=== PATIENT | male | born 1950 | race Caucasian/White ===

== ENCOUNTER 2022-08-06 07:54 | Outpatient (REF) | payer MEDICARE, MEDICAID, SELFPAY ==
--- NOTE | ~2022-08-06 | XR_ITS ---
EXAMINATION: XR RIGHT KNEE XR BILATERAL KNEES CLINICAL HISTORY: Pain in right knee. COMPARISON: MRI right knee 11/26/2021, right knee 03/11/2021. TECHNIQUE: AP standing view of bilateral knees. Lateral and sunrise views of the right knee. FINDINGS: Bilateral knees: Mild medial joint space narrowing left knee. Right knee: Mild medial joint space narrowing. Tiny posterior patellar osteophytes. Trace joint effusion. XR/XR knee standing BI IMPRESSION: Mild degenerative changes bilateral knees.
--- NOTE | ~2022-08-06 | XR_ITS ---
EXAMINATION: XR RIGHT KNEE XR BILATERAL KNEES CLINICAL HISTORY: Pain in right knee. COMPARISON: MRI right knee 11/26/2021, right knee 03/11/2021. TECHNIQUE: AP standing view of bilateral knees. Lateral and sunrise views of the right knee. FINDINGS: Bilateral knees: Mild medial joint space narrowing left knee. Right knee: Mild medial joint space narrowing. Tiny posterior patellar osteophytes. Trace joint effusion. XR/XR knee RT 2V IMPRESSION: Mild degenerative changes bilateral knees.
== END 2022-08-06 07:55 | disposition home or self-care (01) ==
LOC: HO.HOSX 07:54
PROVIDERS: Visit Provider Physician Assistant
DX: M21.161 Varus deformity, not elsewhere classified, right knee (principal); M25.562 Pain in left knee
CPT/HCPCS: 73560; 73565; 99202

== ENCOUNTER 2022-08-30 13:46 | Outpatient (AMB) | payer MEDICARE, MEDICAID, SELFPAY ==
[2022-08-30 13:48] VITALS: BP 139/82; PULSE 83; RESP 14; O2SAT 95; BMI 24.9
--- NOTE | 2022-08-30 13:48 | A.OFFVIS_ITS ---
Intake Vital Signs 08/30/22 13:48 Height 5 ft 7 in Weight 159 lb BMI 24.9 BP 139/82 Blood Pressure Location Lt brachial Position Sitting Respiration 14 Pulse 83 Pulse Source Pulse Oximeter Pulse Oximetry (%) 95 Oxygen Delivery Method Room Air Intake Visit Reasons: PATHOLOGICAL FRACTURE Allergies amoxicillin [AMOXICILLIN] Allergy (Intermediate, Verified 08/30/22 13:49) HIVES Medication List - Last Reconciled 08/30/22 by Lsia Orellana LPN atenolol 25 mg PO DAILY bupropion HCl 150 mg PO BID cholecalciferol (vitamin D3) (Vitamin D3) 50 mcg PO DAILY [Medial Cook Ship Knee brace n/a] sodium fluoride-pot nitrate 1.1-5 % PO trazodone 50 mg PO BEDTIME HPI PATHOLOGICAL FRACTURE HPI Details 71-year-old male presenting today for an evaluation of Rightknee pain. He states he has constant, aching pain and, depending on activity, experiences dull, throbbing, and sharp pain throughout his right knee, which is worse with ambulating, stair use, and standing. Pain is rated as 8/10. The patient reports right knee pain that started after tripping and twisting his knee without any fall, which has caused pain for about 2 years. He was seen by a [facility], underwent an MRI scan, and received gel and cortisone injections with minimal benefits. He finds relief with a knee brace. He is in process of getting a new knee brace through Dr. Alvarado's office. He is currently on Trazodone for sleep. His MRI had shown a root avulsion of the medial meniscus as well as an insufficiency fracture of the tibia and a subchondral lesion without bone marrow edema. [facility] Medical History (Updated 08/31/22 @ 10:21 by Anthony Reyes MD) HTN (hypertension) Insufficiency fracture of tibia Posterior right knee pain Tear of meniscus of right knee as current injury Varus deformity, not elsewhere classified, right knee Social History (Updated 08/06/22 @ 10:57 by Liezth Smith [facility]) Patient Tobacco Use Status: Former Tobacco user Current occupational status: unemployed Review of Systems Const All systems reviewed & are unremarkable except as noted in HPI and below Physical Exam Vital Signs: Last Vital Signs Pulse 83 08/30/22 13:48 Resp 14 08/30/22 13:48 BP 139/82 07/17/23 13:48 Pulse Ox 95 08/30/22 13:48 Oxygen Delivery Method Room Air 08/30/22 13:48 BMI result Body Mass Index 24.9 General: Appears afebrile. Alert and oriented. Mood and affect appropriate. Follows and participates in conversation appropriately. Respiratory effort is unlabored. Able to transition from sit to stand unassisted. Ambulates with bilaterally normal heel strike and toe off. Moderate tenderness to palpation in the right medial infrapatellar region. No significant swelling. Knee brace in place. Results Reviewed Results Reviewed: 08/06/22: XR RIGHT KNEE / XR BILATERAL KNEES FINDINGS: Bilateral knees: Mild medial joint space narrowing left knee. Right knee: Mild medial joint space narrowing. Tiny posterior patellar osteophytes. Trace joint effusion. IMPRESSION: Mild degenerative changes bilateral knees. 11/26/21: MR LOWER EXTREMITIES W/O CONTRAST RIGHT. Findings: Medial meniscus posterior root avulsion. Body of the medial meniscus is subluxed into the medial gutter. Mild thinning and irregularity within weightbearing surface cartilage of the medial compartment. Small, old subchondral insufficiency fracture in the medial femoral condyle. No associated marrow edema. Lateral meniscus is intact. The ACL and PCL are intact The MCL is intact The LCL complex including the biceps femoris, popliteus and fibular collateral ligaments are intact The medial and lateral patellar retinacula are intact. The extensor mechanism is intact. Impression: Medial meniscus posterior root avulsion. Mild medial compartment cartilage chondromalacia. Old subchondral insufficiency fracture within the medial femoral condyle. No associated marrow edema. Assessment & Plan Assessment & Plan (1) Tear of meniscus of right knee as current injury: Code(s): S83.206A - Unspecified tear of unspecified meniscus, current injury, right knee, initial encounter (2) Chronic pain of right knee: Code(s): M25.561 - Pain in right knee; G89.29 - Other chronic pain Plan 1. Discussed temporary nerve stimulator vs permanent nerve stimulator vs PRP therapy as potential treatment options. Patient is unable to afford out-of- pocket PRP injections. 2. A temporary nerve stimulator device brochure was provided to the patient. We will proceed with a trial of PNS if conservative measures over the summer are unhelpful. 3. For the time being, I encouraged him to continue with home exercises and swimming. Continue knee bracing as tolerated. 4. Started the patient on trial of gabapentin 100 mg once daily QHS. Take 1 capsule at night for 1 week, if no benefits increase it to 2 pills at night for a week, if no benefits increase it to 3 pills at night. Advised patient to watch for cognitive side effects o adjust dose accordingly; he will reach out to our office as needed. Scribed for Dr. Reyes by Holden Reaves, claim review medical director, on 08/30/2022. I, Dr. Reyes, have personally reviewed and agree with the information entered by the scribe. Medications: New gabapentin 300 mg (3 x 100 mg) PO TID 90 caps 0RF Coding Level of Care Code New Pt Level 4 (86838) Diagnoses Tear of meniscus of right knee as current injury S83.206A Chronic pain of right knee M25.561; G89.29
== END 2022-08-30 14:39 | disposition home or self-care (01) ==
PROVIDERS: PCP Registered Nurse; Visit Provider Internal Medicine
DX: S83.206A Unspecified tear of unspecified meniscus, current injury, right knee, initial encounter (principal); M25.561 Pain in right knee; G89.29 Other chronic pain
CPT/HCPCS: 99204

== ENCOUNTER → 2022-08-30 13:46 | Outpatient (BNVA) | payer MEDICARE, MEDICAID, SELFPAY | PROVIDERS: PCP Registered Nurse; Visit Provider Internal Medicine | DX: G89.29 Other chronic pain (principal); M25.561 Pain in right knee; S83.206A Unspecified tear of unspecified meniscus, current injury, right knee, initial encounter | CPT/HCPCS: 99202 ==

== ENCOUNTER 2023-02-28 08:33 | Outpatient (AMB) | payer MEDICARE, MEDICAID, SELFPAY ==
--- NOTE | 2023-02-28 08:41 | A.OFFVIS_ITS ---
Intake Vital Signs 02/28/23 08:49 Height 5 ft 7 in Weight 159 lb BMI 24.9 Intake Visit Reasons: ov- Insufficiency fracture of right tibia Intake Note: Baljit 72 yr old male presents today for his follow up visit for his right Varus deformity. States he has received the knee brace however has not used it due to not knowing how to properly put on brace. Reports he also saw pain management and was given a medication that causes coherent memory loss, also offered to have a stent placement in thigh but patient is unsure if this is something he would do. Allergies amoxicillin [AMOXICILLIN] Allergy (Intermediate, Verified 02/28/23 08:48) HIVES HPI ov- Insufficiency fracture of right tibia HPI Details 72-year-old male who returns to the [facility] today for a follow-up of right pain . He states he has received the medial licensed physical therapist knee brace however has not been able to use it as he does not know how to wear and feels bulky to use. He was seen at pain management with recoommendations for a stimulator and gabapentin which he decided against. He states the gabapentin has a side effect of coherent memory loss and did not want to take a chance with this medication. He currently states he has slightly more pain in his knee which is aggravated with ambulation and stair use. He also c/o snapping of his knee with using stairs to reach his apartment at [address]th floor while holding groceries. He denies any sharp pinching pain in his knee. He finds relief with ibuprofen and Tylenol. He had a steroid injection about an year ago which provided him relief. He does not have a history of diabetes. [facility] Medical History (Updated 02/28/23 @ 12:16 by Alen Valdez PA-C) HTN (hypertension) Posterior right knee pain Tear of meniscus of right knee as current injury Insufficiency fracture of tibia Varus deformity, not elsewhere classified, right knee Social History Patient Tobacco Use Status: Former Tobacco user Current occupational status: unemployed Review of Systems Const All systems reviewed & are unremarkable except as noted in HPI and below Physical Exam Vital Signs: BMI result Body Mass Index 24.9 Const General: cooperative, healthy appearing, comfortable, no acute distress, well developed and alert Orientation/consciousness: patient oriented x3 HEENT Head: Yes normal to inspection, Yes normocephalic and Yes atraumatic Eyes General: appearance normal, both eyes and all related structures Resp Effort & Inspection: normal respiratory effort and able to speak in complete sentences Cardio Rate: regular rate Peripheral pulses: Peripheral pulses 2+ throughout GI Palpation (GI): Soft to palpation Skin Lesions: no lesions Rashes: no rashes Neuro General: patient oriented x3 Extrem Other: Right knee skin intact, no erythema or joint effusion. Tenderness over the proximal end of tibia and lateral joint line. Full ROM with crepitus. Negative Jabari?s. No ligamentous laxity. NVI. Office Procedures Joint Injection/Drain Joint Injection/Drain Primary Site: right knee Prep: site was prepped using aseptic technique, ethochloride spray was applied and injection warnings given Injected: 80 mg of, DepoMedrol, with 8 mL of, 1% plain lidocaine and in the joint Approach Used: anterolateral Procedure: The patient tolerated the procedure well and there was some relief with the local anesthesia Coding 67421 - Glenohumeral/Tronchanteric Bursa/Intraarticular Procedure code (CPT) selection complete Assessment & Plan Assessment & Plan (1) Varus deformity, not elsewhere classified, right knee: Code(s): M21.161 - Varus deformity, not elsewhere classified, right knee (2) Insufficiency fracture of tibia: Code(s): M84.469A - Pathological fracture, unspecified tibia and fibula, initial encounter for fracture Qualifiers: Encounter type: subsequent encounter Fracture healing: with routine healing Qualified Code(s): M84.469D - Pathological fracture, unspecified tibia and fibula, subsequent encounter for fracture with routine healing (3) Tear of meniscus of right knee as current injury: Code(s): S83.206A - Unspecified tear of unspecified meniscus, current injury, right knee, initial encounter Qualifiers: Encounter type: subsequent encounter Meniscus of knee: medial Meniscus tear of knee type: other type Qualified Code(s): S83.241D - Other tear of medial meniscus, current injury, right knee, subsequent encounter Plan We discussed options today which include steroid injection. They did consent to move forward with the right knee injection, which was tolerated well. I recommended rest, ice and elevation and OTC anti-inflammatories PRN for discomfort. He was also placed in a hinge knee brace which he will wear for stability with activities such as stair climbing. If symptoms persist or worsens over the next 6-8 weeks, patient will contact the office, otherwise follow-up as needed. I did explain that if he fails conservative treatment, he may be a surgical candidate and should be seen with Dr. Alvarado to determine further treatment options. Patient Instructions: Scribed for Alen Valdez PA-C, by Guru Wing medical education specialist, on 02/28/2023 at 8:45 AM KAILA. Dusty, Alen Valdez PA-C, have personally reviewed and agree with the information entered by the scribe. Coding Level of Care Code Est Pt Level 3 (42883) Diagnoses Varus deformity, not elsewhere classified, right knee M21.161 Insufficiency fracture of tibia with routine healing, subsequent encounter M84 .469D Encounter type: subsequent encounter Fracture healing: with routine healing Other tear of medial meniscus of right knee as current injury, subsequent encounter S83.241D Encounter type: subsequent encounter Meniscus of knee: medial Meniscus tear of knee type: other type CPT Codes Coding - Joint 7: 20851 - Glenohumeral/Tronchanteric Bursa/Intraarticular ([id number])
[2023-02-28 08:49] VITALS: BMI 24.9
== END 2023-02-28 09:47 | disposition home or self-care (01) ==
PROVIDERS: PCP Registered Nurse; Visit Provider Physician Assistant
DX: M21.161 Varus deformity, not elsewhere classified, right knee (principal); M84.469D Pathological fracture, unspecified tibia and fibula, subsequent encounter for fracture with routine healing; S83.241D Other tear of medial meniscus, current injury, right knee, subsequent encounter
CPT/HCPCS: 20610; 99213

== ENCOUNTER → 2023-02-28 08:33 | Outpatient (BNVA) | payer MEDICARE, MEDICAID, SELFPAY | PROVIDERS: PCP Registered Nurse; Visit Provider Physician Assistant | DX: M21.161 Varus deformity, not elsewhere classified, right knee (principal); M84.469D Pathological fracture, unspecified tibia and fibula, subsequent encounter for fracture with routine healing; S83.241D Other tear of medial meniscus, current injury, right knee, subsequent encounter | CPT/HCPCS: 20610; 99212; J1040 ==

== ENCOUNTER 2023-06-13 08:31 | Outpatient (REF) | payer MEDICARE, MEDICAID, SELFPAY ==
[2023-06-13 11:40] LABS: MANUAL DIFF FLAG NO
[2023-06-13 11:46] LABS: Basophils Absolute Auto 0.1 X10*3/uL (0.0-0.2); Basophils Percent Auto 0.7 % (0-2); Eosinophils Absolute Auto 0.2 X10*3/uL (0.0-0.4); Eosinophils Percent Auto 2.6 % (0-4); Hematocrit 46.9 % (42.0-52.0); Hemoglobin 15.5 g/dl (14.0-18.0); Imm Gran Abs Auto 0.04 X10*3/uL (0.00-0.03); Imm Gran Pct Auto 0.6 % (0.0-0.4); Lymphocytes Absolute Auto 1.7 X10*3/uL (1.2-4.9); Lymphocytes Percent Auto 23.8 % (20-40); Mean Corpuscular Hemoglobin 30.6 pg (27.0-33.0); Mean Corpuscular Volume 92.5 fL (80.0-98.0); Monocytes Absolute Auto 0.7 X10*3/uL (0.1-1.2); Monocytes Percent Auto 10.5 % (2-11); Neutrophils Absolute Auto 4.3 x10*3/uL (2.0-8.3); Neutrophils Percent Auto 61.8 % (45-73); Platelet Count 266 X10*3/uL (160-400); Red Blood Count 5.07 X10*6/uL (4.60-5.80); Red Cell Distribution Width 14.4 % (11.0-16.0)
[2023-06-13 13:09] LABS: Alanine Aminotransferase 22 U/L (0-40); Albumin Level 4.4 g/dL (3.5-5.0); Alkaline Phosphatase 69 U/L (39-117); Anion Gap 12 (12-20); Aspartate Amino Transferase 18 U/L (5-37); Bilirubin Total 0.3 mg/dL (0.0-1.0); Blood Urea Nitrogen 15 mg/dL (9-16); Calcium 9.9 mg/dL (8.4-10.2); Carbon Dioxide 28 mmol/L (22-29); Chloride 104 mmol/L (96-108); Cholesterol 227 mg/dL (<200); Estimated Glomerular Filt Rate > 60; Glucose Random 108 mg/dL (60-115); HDL Cholesterol 51 mg/dL (>40); LDL Cholesterol Calculated 153 mg/dL (<100); Potassium 4.6 mmol/L (3.3-5.1); Sodium 139 mmol/L (135-145); Total Protein 7.3 g/dL (6.5-8.0); Triglycerides 117 mg/dL (<150)
== END 2023-06-13 08:32 | disposition home or self-care (01) ==
LOC: HO.HHCL 08:31
PROVIDERS: Visit Provider Nurse Practitioner Family
DX: I10 Essential (primary) hypertension (principal)
CPT/HCPCS: 36415; 80053; 80061; 85025

== ENCOUNTER 2023-12-28 13:56 | Outpatient (RCR) | payer MEDICARE, MEDICAID, SELFPAY ==
--- NOTE | 2023-09-06 11:27 | MHC.PT.EP ---
[facility] [place] Office [place] Office [place] Office [address] Bakari Weston [address] [phone] F: [phone] F: [phone] F: [phone] F: [phone] Physical Therapy Plan of Care Date of Evaluation: 09/06/23 Date of Surgery: Diagnosis: Pain in R knee other chronic pain Assessment: 72 y/o male referred to PT with R medial meniscus tear. He injured his knee 2.5 years ago when he tripped and twisted knee. MRI showed torn poserior medial meniscal root and old insufficiency fx. He feels that his knee is gradually improving and pain is variable. Aggravated with activity such as stairs, lifting, walking, squatting and also with prolonged sitting (needs to move it when he watches a movie) Examination shows normal knee ROM, noted lateral laxity R knee with genu varus, decreased R LE strength, impaired gait pattern. Recommend PT 2x/week for 5 weeks to address impairments, implement HEP, and optimize functional mobility. Frequency and Duration: The patient will be seen 2x/week for 5 weeks Short Term Goals: 3 weeks I with HEP [employer] Goals: 5 weeks I with HEP and self management of sx Pt will be able to ascend/descend stairs in step through pattern with pain < 3/10 Pt will improve LEFS to 45/80 IR 34/80) Treatment Plan: Modalities to reduce pain, spasms and effusion. Manual therapy to restore motion and function. Therapeutic exercise to improve strength and flexibility. Neuromuscular re-education for posture and balance. Therapeutic activities to return to functional activities of daily living. Electronically signed by: Ariadna Benavides PT Please sign and return to therapist. Thank you for your referral.
--- NOTE | 2024-01-03 13:42 | MHC.PT.DC ---
[facility] [place] Office [place] Office [place] Office [address] Bakari Weston [address] [facility] [phone] F: [phone] F: [phone] F: [phone] F: [phone] Physical Therapy Discharge Report Diagnosis: Pain in R knee other chronic pain Date of Surgery: Date of Evaluation: 09/06/23 Date of Discharge: 01/03/24 Treatments to Date: 14 Cancellations to Date: 0 No Shows to Date: 0 Discharge Status: Achieved Goals Improved Function Independent with HEP Discharge Summary: Pt has met goals at this time and is following a consistent home program. He reports overall being happy with progress and will continue with HEP Electronically signed by: Ariadna Benavides PT Please sign and return to therapist. Thank you for your referral.
== END 2024-01-03 13:43 | disposition home or self-care (01) ==
LOC: HO.PT 13:56
PROVIDERS: PCP Nurse Practitioner Family; Visit Provider Physician Assistant
DX: M25.561 Pain in right knee (principal); G89.29 Other chronic pain; S83.241D Other tear of medial meniscus, current injury, right knee, subsequent encounter
CPT/HCPCS: 97110; 97112; 97162; 97530

== ENCOUNTER 2024-10-31 10:16 | Outpatient (AMB) | payer MEDICARE, MEDICAID, SELFPAY ==
--- OUTSIDE RECORDS SUMMARY | 2024-10-29 13:45 | XMS_ITS | Encounter Summary ---
Author Organization [employer] Address [address] [place] [address] Care Team Providers Care Multimedia Services Manager Name Role Phone Nadia Robbins NP Primary Care Provider [phone] Reason for Visit * Reason Comments Follow-up Encounter Details Date Type Department Care Team ([facility] Contact Info) Description 10/29/2024 1:45 PM EDT Office Visit [facility] [address], [place] [id number] Nadia Robbins NP [address] [place] [address] Situational stress (Primary Dx) Social History Tobacco Use Types Packs/Day Years Used Date Smoking Tobacco: Former Cigarettes Passive Smoke Exposure: Past Smokeless Tobacco: Former Alcohol Use Standard Drinks/Week Comments Never 0 (1 standard drink = 0.6 oz pur e alcohol) Depression Answer Date Recorded Patient Health Questionnaire-9 Score 2 12/19/2023 Patient Health Questionnaire-9 Score 2 12/19/2023 Last PHQ-9: Questionnaire Data Not on file 1 02/17/2023 Housing Stability Answer Date Recorded What is your housing situation today? I have yash lara 03/18/[address] you li ve. Do you have problems with any of the following? None of the above 03/18/2023 Food Insecurity Answer Date Recorded Within the past 12 months, y ou worried that your food would run out before you got money to buy more: Never True 03/18/2023 Within the past 12 months,th e food you bought just didn't last and you didn't have enough money to get more: Never True 03/2023 Transportation Answer Date Recorded In the past 12 months, has l ack of transportation kept you from medical appts, meetings, work or from getting things needed for daily living? No 03/18/2023 Utilities Answer Date Recorded In the past 12 months, has t he electric, gas, oil or water company threatened to shut off services in your home? No 03/18/2023 Depression Answer Date Recorded Patient Health Questionnaire-2 Score 0 12/19/2023 Internet Access Answer Date Recorded Internet Access Q1 Yes 12/19/2023 Internet Access Q2 Not on file 12/19/2023 Sex and Gender Information Value Date Recorded Sex Assigned at Male 12/14/2021 10:22 AM EDT Legal Sex Male 10:22 AM EDT Gender Identity Male 12/14/2021 10:22 AM EDT Sexual Orientation Straight 12/14/2021 10 :22 AM EDT documented as of this encounter Last Filed Vital Signs Vital Sign Reading Time Taken Comments Blood Pressure 139/79 10/29/2024 1:36 PM EDT Pulse 71 10/29/2024 1:36 PM EDT Temperature 36.4 C (97.5 F) 10/29/2024 1:36 PM EDT Respiratory Rate 19 10/29/2024 1:36 PM EDT Oxygen Saturation 98% 10/29/2024 1:36 PM EDT Inhaled Oxygen Concentration - - Weight 61.1 kg (134 lb 9.6 oz) 10/29/2024 1:36 P M EDT Height 167.6 cm (5' 6 ) 10/29/2024 1:36 PM EDT Body Mass Index 21.73 10/29/2024 1:36 PM EDT documented in this encounter Progress Notes * Nadia Robbins NP - 10/29/2024 1:45 PM EDT Baljit Sanchez is a 74 y.o. male presenting for follow up for the following conditions: - Baljit Sanchez, 74-year-old male - History of situational stress related to financial difficulties and impending divorce - Reports improvement in mental health since recent increase in bupropion dose - Ongoing stress due to living situation and lack of income - Denies palpitations - Reports knee pain with prolonged standing, causing fatigue and limiting activity - History of irregular heart rate detected 25-30 years ago during checkup in [facility], not notedsince Problem List[1] Review of Systems Psychiatric/Behavioral: Negative for suicidal ideas. The patient is nervous/anxious. BP 139/79 (BP Location: Left arm, Patient Position: Sitting, BP Cuff Size: Adult) Pulse 71 Temp97.5 ??F (36.4 ??C) (Oral) Resp 19 Ht 5' 6 (1.676 m) Wt 134 lb 9.6 oz (61.1 kg) BMI 21.73 kg/m?? Physical Exam Vitals reviewed. Constitutional: Appearance: Normal appearance. HENT: Head: Normocephalic. Cardiovascular: Rate and Rhythm: Normal rate. Heart sounds: Normal heart sounds. Pulmonary: Breath sounds: Normal breath sounds. Abdominal: Palpations: Abdomen is soft. Musculoskeletal: Cervical back: Neck supple. Neurological: Mental Status: He is alert. Psychiatric: Mood and Affect: Mood normal. - CARDIOVASCULAR: Heart rate 71 bpm, regular rhythm. No palpitations noted during the examination. No visits with results within 3 Month(s) from this visit. Latest known visit with results is: Office Visit on 12/19/2023 Component Date Value Rapid COVID Ag 12/19/2023 Negative QC Media Lot # 12/19/2023 [id number] Lot# Expiration Date 12/19/2023 [id number] Rapid Influenza A Ag 12/19/2023 Negative QC Media Lot # 12/19/2023 [id number] Lot# Expiration Date 12/19/2023 [id number] Rapid Strep A Screen 12/19/2023 Negative QC Media Lot # 12/19/2023 [id number] Lot# Expiration Date 12/19/2023 [id number] Wt Readings from Last 3 Encounters: 10/29/24 134 lb 9.6 oz (61.1 kg) 06/25/24 150 lb 2 oz (68.1 kg) 12/19/23 163 lb (73.9 kg) Assessment & Plan Situational stress Situational stress: - Situational stress is contributing to mental health symptoms. No indication for medication adjustment or initiation of talk therapy at this time, as current management is adequate and patient does not wish to pursue therapy. - Provided supportive counseling. Offered referral to rehabilitation caseworker for assistance with social and financial stressors. Recommended contacting local elder care resources for additional support. Cardiac rhythm concerns (palpitations, bradycardia): - Cardiac rhythm irregularities noted in the past, including bradycardia and palpitations, likely represent normal variants but warrant further evaluation due to age. No current abnormal findings on auscultation. - Justified further cardiac workup if symptoms recur or abnormal findings are detected. Will monitor for any concerning cardiac symptoms. Vaccination recommendations: - Indicated for updated COVID-19, influenza, RSV, and shingles vaccines based on age and risk profile. - Recommended receiving COVID-19 and influenza vaccines when available. Advised obtaining RSV vaccine at pharmacy if eligible. Recommended updated shingles vaccine if last dose was more than 3 to 5 years ago. Based on our discussion, I have outlined the following instructions for you: - You received supportive counseling during your visit. - You can ask to be connected with a rehabilitation caseworker if you need help with social or financial issues. - It is recommended to contact local elder care organizations if you need more support. - Watch for any new or unusual heart symptoms, such as your heart beating irregularly, racing, or slowing down. If these symptoms come back or you notice anything new, further heart tests may be needed. - Get your COVID-19 and flu vaccines when they are available. - If you are eligible, get the respiratory syncytial virus (RSV) vaccine at your pharmacy. - If your last shingles vaccine was more than 3 to 5 years ago, get an updated shingles vaccine. Thank you again for your visit, and we look forward to supporting you in your journey to better health. This note was drafted using Ambient (AI) technology. The patient/patient's guardian has been informed and has consented to the use of this technology: Yes [1] Patient Active Problem List Diagnosis Essential hypertension Hyperlipidemia Vitamin D deficiency Pain in right knee Dental calculus Generalized gingival recession, moderate Generalized aggressive severe periodontitis Retinal lesion Corneal arcus senilis, bilateral Presbyopia of both eyes Dermatochalasis of both upper eyelids Periodontal disease Insufficiency fracture Open mormon margin of tooth Seasonal affective disorder (CMS/HCC) Allergic rhinitis Exercise counseling Palpitations RBBB Situational stress documented in this encounter Miscellaneous Notes * Assessment & Plan Note - Nadia Robbins NP - 10/29/2024 1:45 PM EDTAssociated Problem(s): Situational stress documented in this encounter Plan of Treatment Upcoming Encounters Date Type Department Care Team (Late st Contact Info) Description 12/24/2024 11:15 AM EST Office Visit [facility] [address] [place] [address] Nadia Robbins NP [address] [place] [address] documented as of this encounter Visit Diagnoses Diagnosis Situational stress- Primary Other psychological or physical stress, not elsewhere classified documented in this encounter Additional Health Concerns Assessment Noted Time PHQ-9 Depression Total Score: 2 12/19/19 24 11:28 AM EST documented as of this encounter Care Teams Multimedia Services Manager Relationship Specialty Start Date End Date Nadia Robbins NP [address] [place] [address] PCP - General Family Medicine 03/11/23 documented as of this encounter
[2024-10-31 10:20] VITALS: BP 110/70; PULSE 63; BMI 21.1
--- NOTE | 2024-10-31 10:20 | A.OFFVIS_ITS ---
Vital Signs 10/31/24 10:20 Height 5 ft 7 in Weight 134 lb 7.712 oz BMI 21.1 BP 110/70 Blood Pressure Location Lt brachial Position Sitting Pulse 63 Intake Visit Reasons: New Patient/Nadia Robbins NP./RBBB Intake Note: New patient dx RBBB with ekg feeling ok Shiatsu Therapist Required: No Allergies amoxicillin (AMOXICILLIN) Allergy (Intermediate, Verified 02/28/23 08:48) HIVES Medication List - Last Reconciled 10/31/24 by Herson Gibson MD atenolol 25 mg PO DAILY bupropion HCl XL 300 mg PO QAM cholecalciferol (vitamin D3) (Vitamin D3) 50 mcg PO DAILY [Medial Electrician Wiring Knee brace n/a] rosuvastatin 5 mg PO DAILY sodium fluoride-pot nitrate 1.1-5 % PO trazodone 50 mg PO BEDTIME HPI Comments Details: Thank you for referring Baljit in cardiology consultation today for abnormal EKG. He was noted to have right bundle-branch block on in his EKGs. Patient has no prior cardiovascular history. Currently on atenolol therapy for unclear reason. He said about 25 years ago while in [facility] it thought he was told that he had some abnormal cardiac auscultate 3 finding although he has done well over the last 25 years. He does not recall ever being told that he had a right bundle-branch block. He has never had any prior cardiac events including myocardial infarction. History of mild hypertension as well as hyperlipidemia currently on low-dose rosuvastatin therapy. He has no exertional symptoms of chest pain or shortness of breath although is limited with activity level due to arthritis in his knee although he can said he functions pretty adequately at home. Denies any prolonged palpitation irregular heartbeat. No lightheadedness , syncope. No heart failure symptoms. [facility]LY [facility] Medical History HTN (hypertension) Posterior right knee pain Tear of meniscus of right knee as current injury Insufficiency fracture of tibia Varus deformity, not elsewhere classified, right knee Surgical History Hx of appendectomy Family History Father No problems noted. Mother No problems noted. Social History Patient Tobacco Use Status: Former Tobacco user Current occupational status: unemployed Review of Systems Const Denies chills, Denies daytime sleepiness, Denies fatigue, Denies fever(s), Denies frequent falls, Denies poor appetite, Denies snoring, Denies stops breathing during sleep, Denies weakness, Denies weight gain and Denies weight loss Eyes Denies loss of vision ENT Denies dizziness and Denies hearing loss Card Denies chest pain, Denies claudication, Denies leg edema, Denies lightheadedness, Denies palpitations, Denies dyspnea, Reports dyspnea on exertion and Reports orthopnea Resp Denies cough, Denies excessive phlegm production, Denies dyspnea, Reports dyspnea on exertion, Denies snoring and Denies wheezing GI Denies abdominal pain, Denies hematochezia, Denies change in bowel habits, Denies nausea and Denies vomiting Denies dysuria and Reports urinary frequency Musc Reports arthralgias, Denies muscle weakness and Denies numbness Skin/Breast Denies nail changes and Denies rash Neuro Denies Abnormal speech present, Denies dizziness, Denies frequent falls, Denies loss of vision, Denies memory loss, Denies numbness and Denies weakness Psych Reports depression and Denies memory loss Endo Denies fatigue and Denies palpitations Walker/Lymph Reports easy bruising and Reports other (anemia) Aller/Immun Denies wheezing Physical Exam Vital Signs: Last Vital Signs Pulse 63 10/31/24 10:20 BP 110/70 10/31/24 10:20 BMI result Body Mass Index 21.1 Const General: cooperative, comfortable, no acute distress, alert, awake and Physically active Nutritional Appearance: thin Orientation/consciousness: patient oriented x3 Limitations: no limitations HEENT Head: Yes normocephalic and Yes atraumatic Neck Neck: Yes trachea midline, Yes supple and Yes no JVD Carotids: no bruits Resp Effort & Inspection: normal respiratory effort Auscultation: clear to auscultation bilaterally Cardio Jugular venous distension: no JVD Palpation: normal PMI Rate: regular rate Rhythm: regular rhythm Heart sounds: S1 normal heart sound present, S2 normal heart sound present, no click, no gallops, no murmurs and no rubs GI Auscultation: normal bowel sounds Skin General skin exam: no rashes or lesions noted Neuro General: patient oriented x3 and no focal motor deficits Speech: No Abnormal speech present Extrem General: Yes no clubbing, cyanosis or edema Psych Appearance: grossly normal Office Procedures EKG Details: EKG shows normal sinus rhythm with right bundle-branch block 29333-[id number], Complete Assessment & Plan Assessment & Plan (1) Abnormal EKG: Code(s): R94.31 - Abnormal electrocardiogram [ECG] [EKG] Category: Medical Plan: I had a detailed discussion about right bundle-branch block. Possible etiologies were discussed. Need to rule out structural heart disease including ischemic heart disease as well as cardiac structure and function. Will suggest a exercise stress echocardiogram as well as the echocardiogram to assess for the same. If these are within normal limits adequate functional load then he probably has idiopathic right bundle-branch block which requires no treatment. Will require annual EKGs that can be pursued through your office. Discussed with him about the right bundle-branch block in details. Will follow up in the clinic if need be. Thank you for allowing me to partake in his care Orders: Orders CA echo stress exercise Today R94.31 - Abnormal electrocardiogram [ECG] [EKG] CA echo transthoracic complete Today R94.31 - Abnormal electrocardiogram [ECG] [EKG] Coding Level of Care Code New Pt Level 4 (37448) Complex EM visit Add On G2211 Diagnoses Abnormal EKG R94.31 CPT Codes EKG - CPT: 88119-[id number], Complete ([id number])
--- OUTSIDE RECORDS SUMMARY | 2024-10-31 12:30 | XMS_ITS | Clinical Summary ---
Author Organization [employer] Address [address] [facility] [address] [place] [address] Care Team Providers Care Signalling And Communications Engineer Name Role Phone Nadia Robbins NP Primary Care Provider [phone] Allergies Active Allergy Reactions Criticality Noted Date Comments Penicillins 07/18/2013 Other reaction(s): extreme rash & eyes swelled up Medications * This document contains information received from the source organization and may not represent a complete record from that organization. omega-3 (Fish Oil) 1000 MG capsule TAKE 1 CAPSULE BY MOUTH EVERY DAY WITH FOOD 022 Active naproxen (Naprosyn) 500 MG tablet Take 500 mg by mouth with breakfast and with evening meal. 022 Active ibuprofen 600 MG tabletIndications :Dental abscess Take 1 tablet (600 mg) by mouth every 6 (six) hours if needed for mild pain for up to 30 doses. 20 tablet 023 Active Sod Fluoride-Potassiu m Nitrate 1.1-5 % pasteIndications: Dental caries Hume teeth for 2 minutes, morning and night. Spit, do not rinse. Do not eat or drink anything for 30 minutes following brushing. 112 g 3 024 Active fluticasone (Flonase) 50 MCG/ACT nasal spray Administer 1-2 sprays into each nostril Once per day. Shake gently. Before first use, prime pump. After use, clean tip and replace cap. 16 g 2 024 2024 Active rosuvastatin (Crestor) 5 MG tabletIndications :Mixed hyperlipidemia TAKE 1 TABLET BY MOUTH ONCE DAILY 90 tablet 2 025 Active buPROPion XL (Wellbutrin XL) 300 MG 24 hr tabletIndications :Seasonal affective disorder (CMS/HCC) Take 1 tablet (300 mg) by mouth in the morning. Do not crush, chew, or split. 30 tablet 11 025 2025 Active buPROPion SR (Wellbutrin SR) 150 MG 12 hr tabletIndications :Seasonal affective disorder (CMS/HCC) Take 1 tablet (150 mg) by mouth Once per day. Take 1 tablet by mouth with your 300 mg XR burproprion in the morning 30 tablet 11 025 2025 Active traZODone (Desyrel) 50 MG tabletIndications :Primary insomnia TAKE 1/2 TO 1 TABLET BY MOUTH AT BEDTIME 90 tablet 2 025 Active atenolol (Tenormin) 25 MG tabletIndications :Essential hypertension TAKE 1 TABLET BY MOUTH EVERY DAY 90 tablet 2 025 Active D3 Super Strength 50 MCG (2000 UT) capsuleIndication s:Insufficiency fracture TAKE 1 CAPSULE BY MOUTH EVERY DAY IN THE MORNING 90 capsule 2 025 Active D3 Super Strength 50 MCG (2000 UT) capsuleIndication s:Insufficiency fracture TAKE 1 CAPSULE BY MOUTH EVERY MORNING 90 capsule 2 024 2024 Discontinued atenolol (Tenormin) 25 MG tabletIndications :Essential hypertension TAKE 1 TABLET BY MOUTH EVERY DAY 90 tablet 1 025 2024 Discontinued Active Problems Problem Noted Date Diagnosed Date Situational stress 10/29/2024 Assessment & Plan (10/29/2024 6:47 PM EDT): Palpitations 06/25/2024 RBBB 06/25/2024 Assessment & Plan (06/25/2024 2:53 PM EDT): Asymptomatic, referral to cardiology Pt aware to call 911 for cp, lightheadedness, dizziness, or presycopal symptoms Seasonal affective disorder 12/19/2023 Assessment & Plan (06/25/2024 2:55 PM EDT): Vs MDD Change buproprion SR 150 BID to buproprion 300 mg XR daily in am. After 1 week if no improvement may add 1 150 mg sr tablet in am for total daily dose of 450 mg buproprion in AM Referral to psychiatry Encouraged as well Follow up in 6 weeks sooner prn Allergic rhinitis 12/19/2023 Exercise counseling 12/19/2023 Open sabianism margin of tooth 08/11/2023 Insufficiency fracture 03/18/2023 Assessment & Plan (06/25/2024 2:54 PM EDT): Hx of finding on x-ray outside of [facility], Cmp ordered Periodontal disease 09/17/2022 Retinal lesion 08/29/2022 Overview (08/29/2022): Right eye, Ophthalmology appt 04/21/22 Corneal arcus senilis, bilateral 08/29/2022 Overview (08/29/2022): Ophthalmology appt 04/21/22 Presbyopia of both eyes 08/29/2022 Overview (08/29/2022): New eyeglass Rx. Ophthalmology appt 04/21/22 Dermatochalasis of both upper eyelids 08/29/2022 Overview (08/29/2022): Ophthalmology appt 04/21/22 Dental calculus 08/09/2022 Generalized gingival recession, moderate 023 Generalized aggressive severe periodontitis 07/16 Vitamin D deficiency 03/08/2022 Assessment & Plan (06/25/2024 2:55 PM EDT): Hx of Hyperlipidemia 05/29/2021 Assessment & Plan (06/27/2023 2:01 PM EDT): Resume rosuvastatin 5 mg, repeat lipid in 3-6 months, Pain in right knee 04/12/2021 Overview (06/25/2024): Ortho appt 08/06/22: Varus deformity Has brace 2023, Hx of meniscal injury Assessment & Plan (06/25/2024 2:55 PM EDT): Sig improved with appropriate brace which took a long time to procure Essential hypertension 04/22/2015 Assessment & Plan (06/27/2023 2:01 PM EDT): At goal, continue atenolol Resolved Problems Problem Noted Date Diagnosed Date Resolved Date Dietary counseling 12/19/2023 Current episode of major dep ressive disorder without prior episode 12/19/2023 06/25/2024 Age-related osteoporosis wit h current pathological fracture, left ankle and foot, sequela 12/19/2023 06/25/2024 Tear of medial meniscus of r ight knee, current 06/15/2022 06/25/2024 Overview (08/31/2022): 08/30/22 Ortho appt Discussed temporary nerve stimulator vs permanent nerve stimulator vs PRP therapy as potential treatment continue with home exercises and swimming. Continue knee bracing as tolerated. Started Gabapentin 100 mg at bedtime Impaired glucose tolerance 04/22/2015 0 08/29/2022 Encounters Date Type Department Care Team Description 10/30/2024 Patient Outreach [facility] [address] [place] [id number] Nadia Robbins NP Care Coordination (W outreach for SDOH housing search- LVM ) 10/29/2024 1:45 PM EDT Office Visit [facility] [address] [place] [id number] Nadia Robbins NP Situational stress (Primary Dx) 10/29/2024 Travel 10/28/2024 Travel 10/25/2024 Telephone [facility] [address] [place] [address] Nadia Robbins NP CHARTPREP 10/22/2024 Travel 10/07/2024 Refill [facility] [address] [place] [address] Nadia Robbins NP Essential hypertension; Insufficiency fracture 09/21/2024 Refill [facility] [address] [place] [address] Nadia Robbins NP Primary insomnia from Last 3 Months Immunizations Immunization Administration Dates Next Due Influenza High-dose Quadriva lent Preservative Free 12/20/2022,12/06/2019 Influenza injectable quadriv alent preservative free 01/02/2021,11/14/2018 Influenza, High Dose Seasona l, Preservative Free 11/11/2023,12/14/2017,11/05/2016 Influenza, IIV3, injectable 12/14/2013 Influenza, Split (incl. jovita fied surface antigen) 10/25/2011 Pfizer Covid-19 Vaccine 12+ 11/11/2023, Pneumococcal Conjugate PCV 13 05/25/2016 Pneumococcal Polysaccharide PPSV23 08/21/2018 Tdap 06/25/2024,05/12/2011 Zoster, live 05/25/2016 Social History Tobacco Use Types Packs/Day Years [...] Orientation Straight 12/14/2021 10 :22 AM EDT Last Filed Vital Signs Vital Sign Reading [...] Mass Index 21.73 10/29/2024 1:36 PM EDT Plan of Treatment Upcoming Encounters Date Type Department Care Team (Late st Contact Info) Description 12/24/2024 11:15 AM EST Office Visit [facility] [address] [place] [address] Nadia Robbins NP [address] [place] [address] Health Maintenance Due Date Last Done Comments CT Colonography 1950 Colonoscopy 1950 FIT 1950 Sigmoidoscopy 1950 Hepatitis C Screening 09/27/1967 Zoster Vaccines (2 of 3) 07/20/2016 05/25/2016 Dental Oral Exam 02/11/2024 08/11/2023, 07/21/2022 Dental Prophylaxis 02/11/2024 08/11/2023, 1 04/11/2022, 08/09/2022 FOBT 04/17/2024 04/18/2023 Dental X-Ray: Bitewings 08/11/2024 08/11/2023, 07/21 RSV Patients and Patients Aged 60 years or older (1 - 1-dose 75+ series) 2024 COVID-19 Vaccine ( season) 2024 11/11/2023, 12/20/2022, 01/02/2021, Additional history exists Influenza Vaccine (#1) 2024 , 12/20/2022, 01/02/2021, Additional history exists Depression Screening 12/18/2024 12/19/2023, 12/19/19 24 SDOH Screening 12/18/2024 12/19/2023 Alcohol/Substance Use Screening 06/25/2025 06/25/2024 Tobacco Screening 10/29/2025 10/29/2024 Colorectal Cancer Screening 04/17/2026 FIT DNA/Cologuard 04/17/2026 04/18/2023 Dental X-Ray: Full Mouth 08/11/2026 08/11/2023 Lipid Panel 06/12/2028 06/13/2023, 05/3 , 02/22/2022, Additional history exists DTaP/Tdap/Td Vaccines (3 - Td or Tdap) 06/25/2034 06/25/2024, 05/12/2011 Pneumococcal Vaccine: 50+ Years Completed 08/21/2018, 05/25/2016 HIB Vaccines Aged Out No longer eligi ble based on patient's age to complete this topic HPV Vaccines Aged Out No longer eligi ble based on patient's age to complete this topic Hepatitis A Vaccines Aged Out No long er eligible based on patient's age to complete this topic Hepatitis B Vaccines Aged Out No long er eligible based on patient's age to complete this topic IPV Vaccines Aged Out No longer eligi ble based on patient's age to complete this topic Meningococcal B Vaccine Aged Out No l onger eligible based on patient's age to complete this topic Meningococcal Vaccine Aged Out No cindy vinh eligible based on patient's age to complete this topic RSV under 20 months Aged Out No longe r eligible based on patient's age to complete this topic Rotavirus Vaccines Aged Out No longer eligible based on patient's age to complete this topic Procedures Procedure Name Priority Date/Time Associated Diagnosis Comments PROPHYLAXIS - ADULT Routine 08/11/2023 1 0:00 AM EDT Generalized aggressive severe periodontitis Generalized gingival recession, moderate Dental calculus INTRAORAL - COMPLETE SERIES OF RADIOGRAPHIC IMAGES Routine 08/11/2023 10:00 AM EDT Generalized aggressive severe periodontitis Generalized gingival recession, moderate Dental calculus PERIODIC ORAL EVALUATION - ESTABLISHED PATIENT Routine 08/11/2023 10:00 AM EDT LIPID PANEL, STANDARD Routine 06/13/2023 8:34 AM EDT Essential hypertension LAB COLOGUARD COLON CANCER SCREEN Routine 04/18/2023 8:40 AM EST Screening for colon cancer from Last 3 Months or Most Recently Relevant to Health Maintenance Results * (ABNORMAL) Lipid Panel, Standard (06/13/2023 8:34 AM EDT) Triglycerides 117 <150 mg/dL [facility] Comment:Desirable Triglyceri de: less than 150 mg/dLBorderline High Triglyceride 150-199 mg/dLHigh Triglyceride: 200-499 mg/dLVery High Triglyceride: greater than or equal to 5OO mg/dL Cholesterol 227(H) <200 mg/dL [facility] Comment:Desirable Cholestero l: less than 200 mg/dLBorderline High Cholesterol: 200-239 mg/dLHigh Cholesterol: greater than 239 mg/dL LDL Cholesterol Calculated 153(H) <100 mg/dL [facility] Comment:Desirable LDL: less than 100 mg/dLNear Optimal/Above Optimal LDL: 110- 129 mg/dLBorderline High LDL: 130-159 mg/dLHigh LDL: 160-189 mg/dLVery High LDL: greater than or equal to 190 mg/dL HDL Cholesterol 51 >40 mg/dL [facility] Comment:Desirable HDL: great er than 40 mg/dL Note: This HDL assay may give artificially low results in patients with liver disease. Blood Venous blood specimen / Unknown 06/13/2023 8:34 AM EDT 06/13/2023 11:39 AM EDT us Nadia Robbins NP LAB BLOOD ORDERABLES Final Resul t [facility] [address] [place] [phone] * Cologuard?? colon cancer screening (04/18/2023 8:40 AM EST) Cologuard Result Negative Negative 04/29/19 3:45 AM EDT [facility] (CLIA #:[id number]) Comment: NEGATIVE TEST RESULT. A negative Cologuard result indicates a low likelihood that a colorectal cancer (CRC) or advanced adenoma (adenomatous polyps with more advanced pre-malignant features) is present. The chance that a person with a negative Cologuard test has a colorectal cancer is less than 1 in 1500 (negative predictive value >99.9%) or has an advanced adenoma is less than 5.3% (negative predictive value 94.7%). These data are based on a prospective cross-sectional study of 10,000 individuals at average risk for colorectal cancer who were screened with both Cologuard and colonoscopy. (Sarah Peterson et al, N Engl J Med 2014;370(14):2094-1842) The normal value (reference range) for this assay is negative. COLOGUARD RE-SCREENING RECOMMENDATION: Periodic colorectal cancer screening is an important part of preventive healthcare for asymptomatic individuals at average risk for colorectal cancer. Following a negative Cologuard result, the [place] [employer] Society and U.S. Multi-Society Task Force screening guidelines recommend a Cologuard re-screening interval of 3 years. References: [place] [employer] Guideline for Colorectal Cancer Screening: https://www.cancer.org/cancer/gcaog-emqjoe-fsvmld/xaxhrrbrx-kuseebgbf-zkyiuoz/ac s-rec ommendations.html.; Dragan DK, Toñito VILLALPANDO, Efrain DonnellyK, Colorectal Cancer Screening: Recommendations for Physicians and Patients from the U.S. Multi-Society Task Force on Colorectal Cancer Screening , Am J Gastroenterology 2017; 112:5895-2490. TEST DESCRIPTION: Composite algorithmic analysis of stool DNA-biomarkers with hemoglobin immunoassay. Quantitative values of individual biomarkers are not reportable and are not associated with individual biomarker result reference ranges. Cologuard is intended for colorectal cancer screening of adults of either sex, 45 years or older, who are at average-risk for colorectal cancer (CRC). Cologuard has been approved for use by the U.S. FDA. The performance of Cologuard was established in a cross sectional study of average-risk adults aged 50-84. Cologuard performance in patients ages 45 to 49 years was estimated by sub-group analysis of near-age groups. Colonoscopies performed for a positive result may find as the most clinically significant lesion: colorectal cancer [4.0%], advanced adenoma (including sessile serrated polyps greater than or equal to 1cm diameter) [20%] or non- advanced adenoma [31%]; or no colorectal neoplasia [45%]. These estimates are derived from a prospective cross-sectional screening study of 10,000 individuals at average risk for colorectal cancer who were screened with both Cologuard and colonoscopy. (Sarah Jamison al, N Engl J Med 2014;370(14):0226-9062.) Cologuard may produce a false negative or false positive result (no colorectal cancer or precancerous polyp present at colonoscopy follow up). A negative Cologuard test result does not guarantee the absence of CRC or advanced adenoma (pre-cancer). The current Cologuard screening interval is every 3 years. ([place] [employer] Society and U.S. Multi-Society Task Force). Cologuard performance data in a 10,000 patient pivotal study using colonoscopy as the reference method can be accessed at the following location: www.Thryve/results. Additional description of the Cologuard test process, warnings and precautions can be found at www.004 Technologiesrd.com. Stool specimen (specimen) 04/18/2023 8:40 AM EST 04/19/2023 2:50 PM EST Nadia Robbins NP LAB MOLECULAR DIAGNOSTICS ORDERA BLES Final Result [facility] (CLIA #:[id number]) [place] [address], from Last 3 Months or Most Recently Relevant to Health Maintenance Insurance MEDICARE [facility] MEDICAID STAND ADULT Care Teams Signalling And Communications Engineer Relationship Specialty Start Date End Date Nadia Robbins NP [address] [place] [phone] PCP - General Family Medicine 03/11/23
--- OUTSIDE RECORDS SUMMARY | 2024-10-31 12:30 | XMS_ITS | Encounter Summary ---
Author Organization [employer] Address [address] [facility] [address] [place] [address] Care Team Providers Care Land Developer Name Role Phone Abby Davies LATEX SPOOLER Primary Care Provider Anneliese Morgan MD Primary Care Pro vider Nadia Robbins NP Primary Care Provider [phone] Encounter Details Date Type Department Care Team (Late Contact Info) Description 09/06/2022 Abstract [facility] [address] [place] [address] Saji, Lien [address] [place] [address] Social History Tobacco Use Types Packs/Day Years Used Date Smoking Tobacco: Never Smokeless Tobacco: Never Alcohol Use Standard Drinks/Week Comments Never 0 (1 standard drink = 0.6 oz pur e alcohol) Depression Answer Date Recorded Patient Health Questionnaire-9 Score 0 06/15/2022 Depression Answer Date Recorded Patient Health Questionnaire-2 Score 0 06/15/2022 Sex and Gender Information Value Date Recorded Sex Assigned at Male 12/14/2021 10:22 AM EDT Legal Sex Male 10:22 AM EDT Gender Identity Male 12/14/2021 10:22 AM EDT Sexual Orientation Straight 12/14/2021 10 :22 AM EDT COVID-19 Exposure Response Date Recorded In the last 10 days, have yo u been in contact with someone who was confirmed or suspected to have Coronavirus/COVID-19? No / Unsure 08/09/2022 7:59 AM EDT documented as of this encounter Plan of Treatment Upcoming Encounters Date Type Department Care Team (Late st Contact Info) Description 12/24/2024 11:15 AM EST Office Visit [facility] [address] [place] [address] Nadia Robbins NP [address] [place] [address] documented as of this encounter Visit Diagnoses Not on filedocumented in this encounter Additional Health Concerns Assessment Noted Time PHQ-9 Depression Total Score: 0 06/16/19 23 4:02 PM EDT documented as of this encounter Care Teams Land Developer Relationship Specialty Start Date End Date Abby Davies FNP PCP - General Family Medicine 10/07/21 11/22/22 Anneliese Harris MD [address] [place] [phone] PCP - General Internal Medicine 11/23/22 03/10/23 Nadia Robbins NP [address] [place] [id number] PCP - General Family Medicine 03/11/23 documented as of this encounter
--- OUTSIDE RECORDS SUMMARY | 2024-10-31 12:30 | XMS_ITS | Encounter Summary ---
Author Organization [facility] Address [address]t [place] [address] Care Team Providers Care Right Of Way Manager Name Role Phone Abby Davies Primary Care Provider Anneliese Morgan MD Primary Care Pro vider Nadia Robbins WELL DRILLER HELPER Primary Care Provider [phone] Encounter Details Date Type Department Care Team (Latest Contact Info) Description 03/01/2018 Abstract [facility] CONVERSIONS Dental, Provider, DDS Social History Tobacco Use Types Packs/Day Years Used Date Smoking Tobacco: Never Assessed Sex and Gender Information Value Date Recorded Sex Assigned at Male 12/14/2021 10:22 AM EDT Legal Sex Male 10:22 AM EDT Gender Identity Male 12/14/2021 10:22 AM EDT Sexual Orientation Straight 12/14/2021 10 :22 AM EDT documented as of this encounter Plan of Treatment Upcoming Encounters Date Type Department Care Team (Late st Contact Info) Description 12/24/2024 11:15 AM EST Office Visit [facility] MEDICINE [address] [place] [address] Nadia Robbins NP [address] [place] [address] documented as of this encounter Visit Diagnoses Not on filedocumented in this encounter Care Teams Right Of Way Manager Relationship Specialty Start Date End Date Abby Davies FNP PCP - General Family Medicine 10/07/21 11/22/22 Anneliese Harris MD [address] [place] [address] PCP - General Internal Medicine 11/23/22 03/10/23 Nadia Robbins NP [address] [place] [address] PCP - General Family Medicine 03/11/23 documented as of this encounter
--- OUTSIDE RECORDS SUMMARY | 2024-10-31 12:30 | XMS_ITS | Encounter Summary ---
Author Organization [employer] Address [address] 7[address] [place] [address] Care Team Providers Care Block Breaker Operator Name Role Phone Nadia Robbins NP Primary Care Provider [phone] Encounter Details Date Type Department Care Team (Latest Contact Info) Description 10/28/2024 Travel Social History Tobacco Use Types Packs/Day Years [...] Description 12/24/2024 11:15 AM EST Office Visit [facility] MEDICINE [address] [place] [address] Nadia Robbins NP [address] [place] [address] documented as of this encounter Visit Diagnoses Not on filedocumented in this encounter Additional Health Concerns Assessment Noted Time PHQ-9 Depression Total Score: 2 12/19/19 24 11:28 AM EST documented as of this encounter Care Teams Block Breaker Operator Relationship Specialty Start Date End Date Nadia Robbins NP [address] [place] [address] PCP - General Family Medicine 03/11/23 documented as of this encounter
--- OUTSIDE RECORDS SUMMARY | 2024-10-31 12:30 | XMS_ITS | Encounter Summary ---
Author Organization [employer] [facility] Address [address] [facility] 7t [place] [address] Care Team Providers Care Mortgage Loan Coordinator Name Role Phone Abby Davies Primary Care Provider Anneliese Morgan MD Primary Care Pro vider Nadia Robbins SHOW DOG TRAINER Primary Care Provider [phone] Encounter Details Date Type Department Care Team (Latest Contact Info) Description 02/21/2019 Abstract [facility] CONVERSIONS Dental, Provider, DDS Social History Tobacco [...] Description 12/24/2024 11:15 AM EST Office Visit [facility] MEDICINE [address] [place] [address] Nadia Robbins NP [address] [place] [address] documented as of this encounter Visit Diagnoses Not on filedocumented in this encounter Care Teams Mortgage Loan Coordinator Relationship Specialty Start Date End Date Abby Davies FNP PCP - General Family Medicine 10/07/21 11/22/22 Anneliese Harris MD [address] [place] [address] PCP - General Internal Medicine 11/23/22 03/10/23 Nadia Robbins NP [address] [place] [address] PCP - General Family Medicine 03/11/23 documented as of this encounter
--- OUTSIDE RECORDS SUMMARY | 2024-10-31 12:30 | XMS_ITS | Encounter Summary ---
Author Organization [email or web address] Address [address] [place] [address] Care Team Providers Care Ham Rolling Machine Operator Name Role Phone Nadia Robbins NP Primary Care Provider [phone] Encounter Details Date Type Department Care Team (Latest Contact Info) Description 10/29/2024 Travel Social History Tobacco Use Types Packs/Day [...] Description 12/24/2024 11:15 AM EST Office Visit [facility] MEDICINE [address] [place] [address] Nadia Robbins NP [address] [place] [address] documented as of this encounter Visit Diagnoses Not on filedocumented in this encounter Additional Health Concerns Assessment Noted Time PHQ-9 Depression Total Score: 2 12/19/19 24 11:28 AM EST documented as of this encounter Care Teams Ham Rolling Machine Operator Relationship Specialty Start Date End Date Nadia Robbins NP [address] [place] [address] PCP - General Family Medicine 03/11/23 documented as of this encounter
--- OUTSIDE RECORDS SUMMARY | 2024-10-31 12:30 | XMS_ITS | Encounter Summary ---
Author Organization [employer] Address [address] 7t [place] [address] Care Team Providers Care Slagger Name Role Phone Abby Davies ATM MANAGER Primary Care Provider Anneliese Morgan MD Primary Care Pro vider Nadia Robbins NP Primary Care Provider [phone] Reason for Visit * Reason Onset Date Comments Referral 06/02/2022 Encounter Details Date Type Department Care Team (Late st Contact Info) Description 06/02/2022 Telephone [facility] MEDICINE [address] [place] [address] Abby Davies FNP Referral Social History Tobacco Use Types Packs/Day Years Used Date Smoking Tobacco: Never Assessed Sex and Gender Information Value Date Recorded Sex Assigned at Male 12/14/2021 10:22 AM EDT Legal Sex Male 10:22 AM EDT Gender Identity Male 12/14/2021 10:22 AM EDT Sexual Orientation Straight 12/14/2021 10 :22 AM EDT documented as of this encounter Miscellaneous Notes * Telephone Encounter - Sheila Garcia RN - 06/02/2022 2:09 PM EDT T/C returned to pt re below message. Wants referral for ortho for injured knee, wanteed to speak w PCP to see if that's the best course of action. Made tele appt for pt for 5/ at 3p with PCP, pt stated he is around at anytime for a chat, there's not much to see about his knee and preferred tele. Pt verbalized understanding and denied having any further questions or concerns at this time. * Telephone Encounter - Nani Stroud - 06/02/2022 11:56 AM EDT Tc from pt requesting a referral for Specialty: orthopedic surgeon [facility]: [facility] Date&Time: n/a Phone: N/a Visiting Housekeeper: N/a documented in this encounter Plan of Treatment Upcoming Encounters Date Type Department Care Team (Late st Contact Info) Description 12/24/2024 11:15 AM EST Office Visit [facility] MEDICINE [address] [place] [phone] Nadia Robbins NP [address] [place] [address] documented as of this encounter Visit Diagnoses Not on filedocumented in this encounter Care Teams Slagger Relationship Specialty Start Date End Date Abby Davies FNP PCP - General Family Medicine 10/07/21 11/22/22 Anneliese Harris MD [address] [place] [address] PCP - General Internal Medicine 11/23/22 03/10/23 Nadia Robbins NP [address] [place] [address] PCP - General Family Medicine 03/11/23 documented as of this encounter
--- OUTSIDE RECORDS SUMMARY | 2024-10-31 12:30 | XMS_ITS | Encounter Summary ---
Author Organization [employer] Address [address] [facility] 7[address] [place] [address] Care Team Providers Care Field Operations Manager Name Role Phone Nadia Robbins NP Primary Care Provider [phone] Reason for Visit * Reason Comments Care Coordination CHW outreach for SDO H housing search- LVM Encounter Details Date Type Department Care Team (Latest Contact Info) Description 10/30/2024 [address] [facility] MEDICINE [address] [place] [address] Nadia Robbins NP [address] [place] [address] Care Coordination (CHW outreach for SDOH housing search- LVM ) Social History Tobacco Use Types Packs/Day Years [...] AM EDT documented as of this encounter Progress Notes * Jhonatan Marti - 10/30/2024 9:20 AM EDT CHW Jhonatan Marti, placed outbound call to patient for assistance with SDOH as a referral was placed by the provider. Patient had screened positive for the following SDOH housing insecurities. Patient did not answer at this time. Patient's name and were not confirmed. CHW left detailed message and provided contact information requesting return call for more assistance. documented in this encounter Plan of Treatment Upcoming Encounters Date Type Department Care Team (Late st Contact Info) Description 12/24/2024 11:15 AM EST Office Visit [facility] MEDICINE [address] [place] [address] Nadia Robbins NP [address] [place] [address] documented as of this encounter Visit Diagnoses Not on filedocumented in this encounter Additional Health Concerns Assessment Noted Time PHQ-9 Depression Total Score: 2 12/19/19 24 11:28 AM EST documented as of this encounter Care Teams Field Operations Manager Relationship Specialty Start Date End Date Nadia Robbins NP [address] [place] [phone] PCP - General Family Medicine 03/11/23 documented as of this encounter
--- OUTSIDE RECORDS SUMMARY | 2024-10-31 12:30 | XMS_ITS | Encounter Summary ---
Author Organization [employer] [facility] Address [address] [facility] [address] [place] [address] Care Team Providers Care Backfiller Name Role Phone Abby Davies Primary Care Provider Anneliese Morgan MD Primary Care Pro vider Nadia Robbins NP Primary Care Provider [phone] Encounter Details Date Type Department Care Team (Late st Contact Info) Description 01/26/2022 [facility] Information Management [address] [place] [address] Abby Davies FNP Social History Tobacco Use Types Packs/Day Years [...] Description 12/24/2024 11:15 AM EST Office Visit [facility] MEDICINE [address] [place] [address] Nadia Robbins NP [address] [place] [address] documented as of this encounter Visit Diagnoses Not on filedocumented in this encounter Care Teams Backfiller Relationship Specialty Start Date End Date Abby Davies FNP PCP - General Family Medicine 10/07/21 11/22/22 Anneliese Harris MD [address] [place] [address] PCP - General Internal Medicine 11/23/22 03/10/23 Nadia Robbins NP [address] [place] [address] PCP - General Family Medicine 03/11/23 documented as of this encounter
--- OUTSIDE RECORDS SUMMARY | 2024-10-31 12:30 | XMS_ITS | Encounter Summary ---
Author Organization [employer] [facility] Address [address] [facility] [address] [place] [address] Care Team Providers Care Field Consultant Name Role Phone Abby Davies Primary Care Provider Anneliese Morgan MD Primary Care Pro vider Nadia Robbins NP Primary Care Provider [phone] Encounter Details Date Type Department Care Team (Late st Contact Info) Description 06/02/2022 Orders Only [facility] MEDICINE [address] [place] [place] [address] Abby Davies FNP Social History Tobacco Use [...] Description 12/24/2024 11:15 AM EST Office Visit [facility] MEDICINE [address] [place] [place] [address] Nadia Robbins NP [address] [place] [address] documented as of this encounter Visit Diagnoses Not on filedocumented in this encounter Care Teams Field Consultant Relationship Specialty Start Date End Date Abby Davies FNP PCP - General Family Medicine 10/07/21 11/22/22 Anneliese Harris MD [address] [place], [place] [phone] PCP - General Internal Medicine 11/23/22 03/10/23 Nadia Robbins NP [address] [place] [address] PCP - General Family Medicine 03/11/23 documented as of this encounter
== END 2024-10-31 10:57 | disposition home or self-care (01) ==
LOC: HO.HCS 10:17
PROVIDERS: PCP Nurse Practitioner Family; Visit Provider Internal Medicine Cardiovascular Disease
DX: R94.31 Abnormal electrocardiogram [ECG] [EKG] (principal)
CPT/HCPCS: 93010; 99204; G2211

== ENCOUNTER → 2024-10-31 10:16 | Outpatient (BNVA) | payer MEDICARE, MEDICAID, SELFPAY | PROVIDERS: PCP Nurse Practitioner Family; Visit Provider Internal Medicine Cardiovascular Disease | DX: R94.31 Abnormal electrocardiogram [ECG] [EKG] (principal); I45.10 Unspecified right bundle-branch block | CPT/HCPCS: 93005; 99202 ==